=== PATIENT | female | born 1990 | race Caucasian/White ===

== ENCOUNTER → 2019-07-12 | Outpatient (CLI) | payer OTHER ==
[~2019-07-12] MED LIST: BARIUM for suspension 96% w/w (Vanilla Silq Medium Density) PO ONE; BARIUM for suspension 98% w/w (Vanilla Silq High Density) PO ONE
--- NOTE | 2019-07-12 11:33 | Diagnostic Imaging Report ---
EXAMINATION: Barium swallow. INDICATION: Dysphagia. COMPARISON: There are no prior studies available for comparison. FINDINGS: The preliminary films of the neck and chest were unremarkable. A double-contrast exam was performed. The patient swallowed the contrast material without difficulty. There was no delay or obstruction of the passage of the barium through the esophagus. There is no sign of a Zenker's diverticulum. There is no evidence for hiatal hernia or for gastroesophageal reflux either. A cursory examination of the stomach shows no mass or ulceration. The duodenal bulb and proximal small bowel are unremarkable. IMPRESSION: 1. There is no evidence for obstruction of the esophagus by a mass or stricture. There is no sign of a Zenker's diverticulum either. 2. There is no hiatal hernia or gastroesophageal reflux. 3. The stomach, duodenum, and proximal small bowel are unremarkable. Dictated by: Dictated on workstation # [id number]
== END ==
LOC: RAD 09:21
PROVIDERS: ATTEND Internal Medicine
DX: R13.14 Dysphagia, pharyngoesophageal phase (principal)
CPT/HCPCS: 74220

== ENCOUNTER → 2019-07-28 | Outpatient (CLI) | payer OTHER ==
--- NOTE | 2019-07-28 12:09 | Diagnostic Imaging Report ---
INDICATION: Palpable lump in left neck. FINDINGS: Thyroid shows right lobe measures 4.8 x 1.7 x 1.1 cm. The left lobe measures 4.1 x 1.2 x 0.8 cm. There are 2 small cysts within the left lobe the largest measuring 5 mm. There is normal blood flow with Doppler sampling. In the area of concern along the left upper neck there is a oval hypoechoic mass with fatty center measuring 1.5 x 0.7 cm mass with central pedicle of flow. IMPRESSION: 1. Palpable mass is consistent with a slightly enlarged lymph node as described. 2. Benign-appearing cyst left lobe of the thyroid. Dictated by: Dictated on workstation # [id number]
== END ==
LOC: RAD 10:54
PROVIDERS: ATTEND Nurse Practitioner Community Health
DX: R59.0 Localized enlarged lymph nodes (principal); E04.1 Nontoxic single thyroid nodule
CPT/HCPCS: 76536